=== PATIENT | female | born 1960 | race Caucasian/White ===

== ENCOUNTER 2019-07-31 10:07 | Inpatient (IN) ==
[2019-07-31] MEDS ORDERED: 0.9 % SODIUM CHLORIDE 1,000 ML IV ONE ×2 (10:23→11:21)
[2019-07-31 10:48] LABS: POC Blood Urea Nitrogen 67 mg/dl (6-20); POC CO2 19 mmol/L (22-30); POC Calcium, Ionized 0.97 mmol/L (1.16-1.32); POC Chloride 97 mmol/L (96-108); POC Creatinine 2.7 mg/dl (0.6-1.1); POC Glucose, Random 129 mg/dL (70-105); POC Sodium 128 mmol/L (133-145)
[2019-07-31 11:10] LABS: Basophils # (Auto) 0.1 K/mcL (0.0-0.3); Basophils % (Auto) 0.8 % (0.0-2.0); Eosinophils # (Auto) 0.1 K/mcL (0.0-0.7); Eosinophils % (Auto) 0.8 % (0.0-7.0); Hemoglobin 14.1 g/dL (12.0-15.0); Lymphocytes % (Auto) 11.1 % (15.5-49.0); Mean Cell Volume 85.1 fL (80.0-100.0); Mean Corpuscular HGB Conc 34.4 g/dL (31.0-36.0); Mean Platelet Volume 8.1 fL (7.4-10.4); Monocytes # (Auto) 1.2 K/mcL (0.1-0.9); Monocytes % (Auto) 13.3 % (1.0-12.0); Platelet Count 280 K/mcL (140-440); RBC 4.82 M/mcL (4.00-5.20); Red Cell Distribution Width 12.6 % (11.5-14.5); WBC 8.9 K/mcL (4.5-11.0)
[2019-07-31] MEDS ORDERED: ONDANSETRON 4 MG/2 ML VIAL IV ONE (11:20)
--- NOTE | 2019-07-31 11:26 | Emergency Department Note ---
Nausea/Vomiting/Diarrhea HPI - General Chief complaint: Nausea/Vomiting/Diarrhea Stated complaint: nausea and vomitting Time Seen by Provider: 07/31/19 10:17 Source: patient Mode of arrival: ambulatory Limitations: no limitations - History of Present Illness HPI Narrative: 59-year-old female presents with 7-day history of nausea, vomiting, and diarrhea. She also has diffuse abdominal pain. States for 5 and half days she did have significant nonstop vomiting and diarrhea. States she finally is not vomiting but still has some nausea. Has not had diarrhea for about 24 hours. States she feels really lightheaded and generally weak. She presented to [facility] today and had a blood pressure of 80/50 so they sent her to the ER for further evaluation. No dysuria or frequency. Feels like she is very dry. States she does take medications for high blood pressure and did take them this morning. No chest pain or shortness of breath. No sore throat or ear pain. No fever or chills - Related Data Home Medications Medication Instructions Recorded Confirmed Bisoprolol/Hydrochlorothiazide 1 tab PO DAILY 01/21/17 07/31/19 [Bisoprolol-Hctz 10-6.25 mg Tab] Fexofenadine HCl [Aller-Fex] 180 mg PO DAILY 01/21/17 07/31/19 Fluticasone Furoate [Flonase 9.9 ml NS DAILY 01/21/17 07/31/19 Sensimist] Leflunomide [Arava] 20 mg PO DAILY 01/21/17 07/31/19 Lisinopril [Zestril] 20 mg PO DAILY 01/21/17 07/31/19 Omeprazole 20 mg PO DAILY 01/21/17 07/31/19 Previous Rx's Medication Instructions Recorded guaifenesin 100 mg/5 mL oral liquid 200 mg PO Q4H PRN #120 ml 08/29/17 Allergies Allergy/AdvReac Type Severity Reaction Status Date / Time azithromycin [From Zithromax] Allergy Unknown Verified 08/29/17 13:02 Review of Systems All systems ED: reviewed and negative except as stated. 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 Absent: conjunctival injection ENT: Absent: mucous membranes moist (slightly dry) Chest: Present: symmetric chest wall rise Respiratory: Present: normal lung sounds bilaterally. Absent: respiratory di stress, rales/crackles, accessory muscle use Cardiovascular: Present: regular rate, normal heart sounds Abdominal: Present: soft, tenderness (difuse), normal bowel sounds. Absent: distention, guarding, rebound, rigidity, mass Neurological: Present: alert, oriented X3 Psychiatric: Present: normal affect, normal mood Skin: Present: warm, dry, intact, normal color. Absent: rash, hives, cyanosis, diaphoresis Course Course Narrative: At 1400 I did speak with the hospitalist, Dr. Penaloza who agrees to accept this patient. Vital Signs Temperature 97 F 07/31/19 10:07 Pulse Rate 71 07/31/19 10:07 Respiratory Rate 16 07/31/19 10:07 Blood Pressure 86/60 07/31/19 10:07 Pulse Oximetry (%) 96 07/31/19 10:07 Temperature 97 F 07/31/19 10:07 Pulse Rate 62 07/31/19 13:34 Respiratory Rate 17 07/31/19 13:34 Blood Pressure 128/84 07/31/19 13:34 Pulse Oximetry (%) 100 07/31/19 13:34 Nausea/Vomiting/Diarrhea - Lab Data Lab results reviewed: Yes I reviewed the patient's lab results. Result diagrams: 07/31/19 10:41 07/31/19 10:41 Lab Results 07/31/19 07/31/19 07/31/19 Range/Units 10:41 10:41 11:35 WBC 8.9 (4.5-11.0) K/mcL RBC 4.82 (4.00-5.20) M/mcL Hgb 14.1 (12.0-15.0) g/dL Hct 41.0 (36.0-48.0) % POC Hct 44.0 (36.0-48.0) % MCV 85.1 (80.0-100.0) fL MCH 29.3 (26.0-34.0) pg MCHC 34.4 (31.0-36.0) g/dL RDW 12.6 (11.5-14.5) % Plt Count 280 (140-440) K/mcL MPV 8.1 (7.4-10.4) fL Gran % 74.0 (38.0-78.0) % Lymph % (Auto) 11.1 L (15.5-49.0) % [place] % (Auto) 13.3 H (1.0-12.0) % Eos % (Auto) 0.8 (0.0-7.0) % Baso % (Auto) 0.8 (0.0-2.0) % Gran # 6.5 (1.8-8.0) K/mcL Lymph # (Auto) 1.0 L (1.5-4.8) K/mcL [place] # (Auto) 1.2 H (0.1-0.9) K/mcL Eos # (Auto) 0.1 (0.0-0.7) K/mcL Baso # (Auto) 0.1 (0.0-0.3) K/mcL VBG Lactic Acid 1.3 (0.5-2.0) mmol/L POC Sodium 128 L (133-145) mmol/L Sodium 128 L (133-145) mmol/L POC Potassium 3.0 L (3.3-5.1) mmol/L Potassium 3.1 L (3.3-5.1) mmol/L POC Chloride 97 (96-108) mmol/L Chloride 92 L (96-108) mmol/L Carbon Dioxide 17 L (22-30) mmol/L POC Total CO2 19 L (22-30) mmol/L Anion Gap 19.0 H (8-16) POC BUN 67 H (6-20) mg/dl BUN 69 H (6-20) mg/dl Creatinine 2.4 H (0.6-1.1) mg/dl POC Creatinine 2.7 H (0.6-1.1) mg/dl GFR Calculation 22 Glucose 130 H (70-105) mg/dL POC Glucose 129 H (70-105) mg/dL Calcium 9.7 (8.6-10.4) mg/dl POC WB Ioniz Calcium 0.97 L (1.16-1.32) mmol/L Total Bilirubin 0.5 (0.0-1.0) mg/dL AST 18 (0-37) U/l ALT 19 (0-40) U/l Alkaline Phosphatase 106 (39-117) U/L Total Protein 8.1 (5.9-8.4) gm/dL Albumin 4.2 (3.2-5.2) gm/dL Globulin 3.9 H (2.2-3.7) gm/dL Albumin/Globulin Ratio 1.1 (1.0-2.3) Disposition Pt seen by EDUCATIONAL CONSULTANT/PA only: Yes Clinical Impression: Dehydration, Gastroenteritis Disposition: Xfer As Outpt/Obs ([facility]) Condition: Fair Referrals: Jaime Jolly MD [Primary Care Provider] - Time of Disposition: 14:00
[2019-07-31 11:32] LABS: ALT/SGPT 19 U/l (0-40); AST/SGOT 18 U/l (0-37); Albumin 4.2 gm/dL (3.2-5.2); Albumin/Globulin Ratio 1.1 (1.0-2.3); Alkaline Phosphatase 106 U/L (39-117); Bilirubin,Total 0.5 mg/dL (0.0-1.0); Blood Urea Nitrogen 69 mg/dl (6-20); Calcium 9.7 mg/dl (8.6-10.4); Carbon Dioxide 17 mmol/L (22-30); Globulin 3.9 gm/dL (2.2-3.7); Glomerular Filtration Rate 22; Glucose 130 mg/dL (70-105)
[2019-07-31 11:34] LABS: Chloride 92 mmol/L (96-108)
[2019-07-31] MEDS ORDERED: POTASSIUM CHLORIDE 40 MEQ in DEXTROSE 5% IN WATER 500 ML IV ONE (12:09)
[2019-07-31] MEDS ORDERED: POTASSIUM CHLORIDE 20 MEQ/10 ML VIAL IV ONE (12:26)
--- NOTE | 2019-07-31 13:55 | Cat Scan Report ---
History: Abdominal pain with nausea and vomiting TECHNIQUE: The patient was imaged following oral contrast and no intravenous contrast due to elevated BUN/creatinine levels. Patient was scanned from the diaphragm to the symphysis pubis. Sagittal and coronal reformats are created. Radiation exposure was limited using dose reduction technology. FINDINGS: There are few scattered bulla in both lungs. Evaluation the abdominal organs without contrast is somewhat limited. The liver and spleen are normal in size and homogeneous. The gallbladder is partially contracted. There are several calcified stones and some sludge within the lumen of the gallbladder. The wall does not appear to be abnormally thickened and the bile ducts are nondilated. There is no apparent mass or inflammation in the pancreas. The adrenals are normal. There is a nonobstructing 1.5 mm kidney stone on the left side, in a middle third calyx. No abnormality is seen in the right kidney. There is no loss of renal parenchyma in either kidney. The aorta is normal in caliber. There are scattered plaques along the wall of the aorta and iliac arteries. The oral contrast has passed through stomach and small intestine into the rectum without obstruction. The appendix is noninflamed. There is a small lipoma at the ileocecal valve. There is no evidence of diverticulitis or inflammatory bowel disease. The uterus and ovaries have been removed. No ascites or adenopathy are present in the abdomen or pelvis. The urinary bladder appears normal. Severe disc degeneration is present at L5-S1 and there is 4 mm retrolisthesis of L5 posterior to L1. There are medium-size posterior spurs, along with a moderate size posterior bulge at that level. There is stenosis of the neural foramina, right greater than left at L5-S1. Less severe disc degeneration is present throughout the remainder of the lumbar spine as well as the lower thoracic spine. IMPRESSION: Cholelithiasis Severe degenerative disc disease at L5-S1 No acute abnormality Interpreted and Authenticated by: Denny Bender 07/31/19
--- NOTE | 2019-07-31 14:24 | Internal Med History&Physical ---
Medical - H&P: [facility] Patient information: Note initiated : 07/31/19 at 2:20 pm Service Date, if different from initiated Date: [] Patient: Bernie Muro a 59 y/o F admitted on for nausea and vomiting. Chief Complaint: [] History of present illness: Ms. Muro is a 59 year old F Who [facility] for [facility] weakness. Patient had nausea vomiting diarrhea that started about a week ago. She had about 3 days worth of severe nausea vomiting diarrhea. She has not had any emesis for the past for 5 days and no diarrhea for the past couple days. Still little nauseous with some generalized abdominal pain. She is also had some heart burn over the weekend after emesis At [facility] she had a blood pressure of 80/50. In the ER she was found to have acute kidney injury with creatinine 2.4 and BUN 69. Hyponatremia and hypo-kalemia. Lactate was okay. The abdomen pelvis was unremarkable except for cholelithiasis, no features of cholecystitis. Blood pressure is improved with IV fluid. Still has not been able to divide urine sample. Review of Systems: Pertinent positives as above. And occasional headaches and chills. fever/chest pain/cough/dyspnea. Remaining 10 point review of system reviewed negative Medical - H&P: [facility] Medical history: Medical History (Last Reviewed 07/31/19 @ 10:15 by Mack Riggs PA-C) Tobacco abuse Hypertension Rheumatoid arthritis GERD Past surgical history: Hysterectomy Right hand surgery Tonsillectomy Family history: Mother father with both healthy Social history: Patient smokes half pack cigarettes per day Drinks alcohol occasionally Lives at home with her Medical - H&P: Meds Home Medications Medication Instructions Recorded Confirmed Type Bisoprolol/Hydrochlorothiazide 1 tab PO DAILY 01/21/17 07/31/19 History [Bisoprolol-Hctz 10-6.25 mg Tab] Fexofenadine HCl [Aller-Fex] 180 mg PO DAILY 01/21/17 07/31/19 History Fluticasone Furoate [Flonase 9.9 ml NS DAILY 01/21/17 07/31/19 History Sensimist] Leflunomide [Arava] 20 mg PO DAILY 01/21/17 07/31/19 History Lisinopril [Zestril] 20 mg PO DAILY 01/21/17 07/31/19 History Omeprazole 20 mg PO DAILY 01/21/17 07/31/19 History guaifenesin 100 mg/5 mL oral liquid 200 mg PO Q4H PRN #120 ml 08/29/17 07/31/19 Rx Allergies Allergy/AdvReac Type Severity Reaction Status Date / Time azithromycin [From Zithromax] Allergy Unknown Verified 08/29/17 13:02 Medical - H&P: Exam - Constitutional Vitals: Temp Pulse Resp BP Pulse Ox 97 F 62 17 128/84 100 07/31/19 10:07 07/31/19 13:34 07/31/19 13:34 07/31/19 13:34 07/31/19 13:34 Exam: General: Alert, Awake, No acute Distress Eyes/N/T: EOMI, PEERL, DMM Head/Neck: neck supple, normocephalic atraumatic CV: RRR, No murmurs, normal s1/s2 Pulm: Clear b/l, no wheezing/rhonchi/rales Abd: soft, +BS x4 Ext: no clubbing/cyanosis/edema Neuro: Alert, no focal deficits, moves all extremities, CN 2-12 grossly intact, symmetrical strength b/l upper/lower, sensations intact b/l upper/lower Skin: warm/dry Medical - H&P: Reslt - Labs CBC & Chem 7: 07/31/19 10:41 07/31/19 10:41 Labs: Short CBC 07/31/19 Range/Units 10:41 WBC 8.9 (4.5-11.0) K/mcL Hgb 14.1 (12.0-15.0) g/dL Hct 41.0 (36.0-48.0) % Plt Count 280 (140-440) K/mcL BMP 07/31/19 10:41 Sodium 128 L Potassium 3.1 L Chloride 92 L Carbon Dioxide 17 L BUN 69 H Creatinine 2.4 H Glucose 130 H Calcium 9.7 Liver Function 07/31/19 Range/Units 10:41 Total Bilirubin 0.5 (0.0-1.0) mg/dL AST 18 (0-37) U/l ALT 19 (0-40) U/l Alkaline Phosphatase 106 (39-117) U/L Albumin 4.2 (3.2-5.2) gm/dL - Impressions CT and pelvis unremarkable for acute pathology, cholelithiasis noted Medical - H&P: A/P - Narrative A/P Narrative: A: *SIGRID: 2/2 prerenal *Hypotension: 2/2 volume depletion + BP meds -responded to IVF's *HypoNat/Anand: *Met Acidosis: 2/2 above *N/V/D: 2/2 gastroenteritis, improving *HTN: hypotensive on admit *RA: *GERD: * P: -IVF -f/u chemistry -monitor UOP -hold home BB/HCTZ/ACEI -monitor BP -ppx: lovenox/home ppi full code
[2019-07-31] MEDS ORDERED: ACETAMINOPHEN 325 MG TABLET PO PRN (16:49)
[2019-07-31] MEDS ORDERED: ONDANSETRON 4 MG/2 ML VIAL IV PRN (16:49)
[2019-07-31] MEDS ORDERED: PROMETHAZINE 25 MG/ML VIAL IV PRN (16:49)
[2019-07-31] MEDS: 0.9 % SODIUM CHLORIDE 1,000 ML IV SCH (17:33)
[2019-07-31 17:35] LABS: Appearance,Urine CLEAR; Bacteria,Urine 0 /hpf (0); Bilirubin,Urine NEG (NEG); Color,Urine STRAW; Culture Indicated,Urine NO; Glucose,Urine (UA) NEGATIVE (NEG); Ketones,Urine NEG (NEG); Leukocyte Esterase,Urine NEG /uL (NEG); Nitrate,Urine NEG (NEG); Protein,Urine NEG (NEG); Specific Gravity,Urine 1.006 (1.000-1.035); Urine Blood 0.2 mg/dL (<0.03); Urine RBC 0 /hpf (0-1); Urine Squamous Epithelial Cell 5 /hpf (0-4); Urine WBC 0 /hpf (0-4); Urobilinogen,Urine NEG (NEG)
[2019-07-31 18:24] LABS: ALT/SGPT 16 U/l (0-40); AST/SGOT 17 U/l (0-37); Albumin 3.7 gm/dL (3.2-5.2); Alkaline Phosphatase 96 U/L (39-117); Bilirubin,Direct < 0.2 mg/dL (0.0-0.3); Bilirubin,Total 0.4 mg/dL (0.0-1.0); Blood Urea Nitrogen 59 mg/dl (6-20); Calcium 8.6 mg/dl (8.6-10.4); Carbon Dioxide 17 mmol/L (22-30); Chloride 96 mmol/L (96-108); Globulin 3.6 gm/dL (2.2-3.7); Glucose 98 mg/dL (70-105); Lactate Dehydrogenase 185 U/L (94-250); Phosphorous 4.1 mg/dL (2.7-4.5); Triglycerides 247 mg/dl (<150); Uric Acid 9.2 mg/dL (2.5-8.0)
[2019-07-31 18:25] LABS: Glomerular Filtration Rate 29
[2019-07-31] MEDS: FAMOTIDINE 20 MG TABLET PO SCH (20:17)
[2019-07-31] MEDS: 0.9 % SODIUM CHLORIDE 10 ML SYRINGE IV SCH (20:17)
[2019-08-01] MEDS: 0.9 % SODIUM CHLORIDE 1,000 ML IV SCH (05:46)
[2019-08-01] MEDS: 0.9 % SODIUM CHLORIDE 10 ML SYRINGE IV SCH ×3 (05:46→20:05)
[2019-08-01 06:39] LABS: ALT/SGPT 15 U/l (0-40); AST/SGOT 18 U/l (0-37); Albumin 3.2 gm/dL (3.2-5.2); Alkaline Phosphatase 94 U/L (39-117); Bilirubin,Direct < 0.2 mg/dL (0.0-0.3); Bilirubin,Total 0.4 mg/dL (0.0-1.0); Blood Urea Nitrogen 49 mg/dl (6-20); Calcium 8.4 mg/dl (8.6-10.4); Carbon Dioxide 14 mmol/L (22-30); Chloride 101 mmol/L (96-108); Globulin 3.2 gm/dL (2.2-3.7); Glucose 90 mg/dL (70-105); Lactate Dehydrogenase 182 U/L (94-250); Phosphorous 3.2 mg/dL (2.7-4.5); Triglycerides 207 mg/dl (<150); Uric Acid 7.8 mg/dL (2.5-8.0)
[2019-08-01 06:54] LABS: Glomerular Filtration Rate 38
--- NOTE | 2019-08-01 07:54 | Internal Med Progress Note ---
Medical - PN: Subj Patient information: Note initiated : 08/01/19 at 7:50 am Service Date, if different from initiated Date: [] Patient: Bernie Muro a 59 y/o F admitted on 07/31/19 for nausea and vomiting. Chief Complaint: [] Interval history: Ms. Muro is a 59 year old F Who presents from [facility] for hypotension weakness. Patient had nausea vomiting diarrhea that started about a week ago. She had about 3 days worth of severe nausea vomiting diarrhea. She has not had any emesis for the past for 5 days and no diarrhea for the past couple days. Still little nauseous with some generalized abdominal pain. She is also had some heart burn over the weekend after emesis At [facility] she had a blood pressure of 80/50. In the ER she was found to have acute kidney injury with creatinine 2.4 and BUN 69. Hyponatremia and hypo-kalemia. Lactate was okay. The abdomen pelvis was unremarkable except for cholelithiasis, no features of cholecystitis. Blood pressure is improved with IV fluid. Still has not been able to divide urine sample. 08/01 Has a bit of a headache sore neck but otherwise feeling better. Poor sleep overnight. No other events or new complaints. Review of Systems: denies fever/chills/nausea/vomiting/chest or abdominal pain/cough/dyspnea/diarrhea. Otherwise see above. - Constitutional Vitals: Vital Signs Temp Pulse Resp BP Pulse Ox 97.6 F 78 20 122/79 97 08/01/19 07:22 08/01/19 03:30 08/01/19 07:22 08/01/19 07:22 08/01/19 07:22 Period Temp Pulse Resp BP Sys/Adkins Pulse Ox Last 24 Hr 97 F-98.8 F 58-78 12-20 86-146/60-88 96-100 Intake and Output 07/31/19 08/01/19 08/01/19 21:59 05:59 13:59 Intake Total 2549 2577 Output Total 530 2200 Balance 2019 377 Weight 85.457 kg Intake & Output: Intake & Output 07/31/19 08/01/19 08/01/19 21:59 05:59 13:59 Intake Total 2549 2577 Output Total 530 2200 Balance 2019 377 Weight 85.457 kg Intake: IV 1509 977 Sodium Chloride 0.9% 1,000 ml @ 1000 977 80 mls/hr IV .[id number] WALKER Rx#: [id number] Potassium Chloride 40 Meq In 509 Dextrose 5% in Water 500 ml @ 130 mls/hr IV ONCE ONE Rx#: [id number] Oral 1040 1600 Output: Void Amount 530 2200 Other: Meal Dinner Percent of Meal Consumed 75% Urine Appearance Clear Clear Urine Color Pale Pale Stool Size Small Stool Color Brown Stool Consistency Liquid # Voids 1 # Bowel Movements 1 Exam: General: Alert, Awake, No acute Distress Eyes/N/T: EOMI, Head/Neck: neck supple, CV: RRR, No murmurs, Pulm: Clear b/l, no wheezing/rhonchi/rales Abd: soft, +BS x4 Ext: no clubbing/cyanosis/edema Neuro: Alert, no focal deficits, moves all extremities, Skin: warm/dry Medical - PN: Obj Da - Labs CBC & Chem 7: 07/31/19 10:41 08/01/19 05:13 Labs: Abnormal Lab Results 08/01/19 07/31/19 07/31/19 05:13 16:56 16:49 Lymph % (Auto) [place] % (Auto) Lymph # (Auto) [place] # (Auto) POC Sodium Sodium 129 L 129 L POC Potassium Potassium Chloride Carbon Dioxide 14 L 17 L POC Total CO2 Anion Gap POC BUN BUN 49 H 59 H Creatinine 1.5 H 1.9 H POC Creatinine Glucose POC Glucose Uric Acid 9.2 H Calcium 8.4 L POC WB Ioniz Calcium Globulin Triglycerides 207 H 247 H Urine Occult Blood 0.2 A Ur Squamous Epith Cells 5 H 07/31/19 07/31/19 10:41 10:41 Lymph % (Auto) 11.1 L [place] % (Auto) 13.3 H Lymph # (Auto) 1.0 L [place] # (Auto) 1.2 H POC Sodium 128 L Sodium 128 L POC Potassium 3.0 L Potassium 3.1 L Chloride 92 L Carbon Dioxide 17 L POC Total CO2 19 L Anion Gap 19.0 H POC BUN 67 H BUN 69 H Creatinine 2.4 H POC Creatinine 2.7 H Glucose 130 H POC Glucose 129 H Uric Acid Calcium POC WB Ioniz Calcium 0.97 L Globulin 3.9 H Triglycerides Urine Occult Blood Ur Squamous Epith Cells Meds: Medications Acetaminophen (Tylenol) 650 mg PO Q6HP PRN; Protocol PRN Reason: Per Pain Protocol/Fever > 101 Last Admin: 08/01/19 03:26 Dose: 650 mg Documented by: Enoxaparin Sodium (Lovenox) 30 mg SQ DAILY [facility] Famotidine (Pepcid) 20 mg PO HS [facility] Last Admin: 07/31/19 20:17 Dose: 20 mg Documented by: Sodium Chloride (Sodium Chloride 0.9%) 1,000 mls @ 80 mls/hr IV .[id number] [facility] Stop: 08/01/19 17:48 Last Admin: 08/01/19 05:46 Dose: 80 mls/hr Documented by: Leflunomide (Arava) 20 mg PO DAILY [facility] Ondansetron HCl (Zofran) 4 mg IV Q6HP PRN PRN Reason: Nausea And Vomiting Promethazine HCl (Phenergan) 12.5 mg IV Q6HP PRN PRN Reason: Nausea And Vomiting Sodium Chloride (Saline Flush) 10 ml IV Q8 [facility] Last Admin: 08/01/19 05:46 Dose: Not Given Documented by: Medical - PN: A/P - Time Spent With Patient Total time spent is greater than 50% in coordination of care (as documented) at patient's floor/unit and/or counseling patient: - Narrative A/P Narrative: A: *SIGRID: 2/2 prerenal. Improved -1.5<2.4 *Hypotension: 2/2 volume depletion + BP meds -responded to IVF's *HypoNat/Anand: improving *Met Acidosis: 2/2 above *N/V/D: 2/2 gastroenteritis, improving *HTN: hypotensive on admit *RA: *GERD: * P: -IVF -monitor UOP -restart home BB, hold HCTZ/ACEI. will not cont hctz upon d/c -ppx: lovenox/home ppi full code Medical - PN: Qual - VTE Deep Vein Thrombosis/Pulmonary Embolism Present on Admission: No
[2019-08-01] MEDS: BISOPROLOL 5 MG TABLET PO SCH (08:05)
[2019-08-01] MEDS: ENOXAPARIN 30 MG/0.3 ML SYRINGE SQ SCH (08:05)
[2019-08-01] MEDS: LEFLUNOMIDE 20 MG TABLET PO SCH (09:45)
--- NOTE | 2019-08-01 11:35 | Discharge Summary ---
Medical - DS: Prov Patient information: Note initiated : 08/01/19 at 11:31 am Service Date, if different from initiated Date: [] Patient: Bernie Muro 59 y/o F admitted on 07/31/19 for nausea and vomiting. Chief Complaint: [] Date of admission: 07/31/19 16:34 Discharge date: 08/02/19 Primary care physician: Jaime Jolly Consults: 07/31/19 Consult to Physician [CONS] Stat Comment: Consulting Provider: Brian Penaloza Reason For Exam: Physician to Consult Medical - DS: Meds - Discharge Medications Prescriptions: Losartan [Cozaar] 50 mg PO DAILY #1 tablet Bisoprolol [Zebeta] 10 mg PO DAILY #30 tab Active and Home Medications: Home Medications Bisoprolol/Hydrochlorothiazide [Bisoprolol-Hctz 10-6.25 mg Tab] 1 tab PO DAILY 01/21/17 [History Confirmed 07/31/19 Last Taken Unknown] Fexofenadine HCl [Aller-Fex] 180 mg PO DAILY 01/21/17 [History Confirmed 07/31/19 Last Taken Unknown] Fluticasone Furoate [Flonase Sensimist] 9.9 ml NS DAILY 01/21/17 [History Confirmed 07/31/19 Last Taken Unknown] Leflunomide [Arava] 20 mg PO DAILY 01/21/17 [History Confirmed 07/31/19 Last Taken Unknown] Omeprazole 20 mg PO DAILY 01/21/17 [History Confirmed 07/31/19 Last Taken Unknown] Losartan [Cozaar] 100 mg PO QDAY 07/31/19 [History Confirmed 07/31/19 Last Taken Unknown] Home Medications Fexofenadine HCl [Aller-Fex] 180 mg PO DAILY 01/21/17 [History Confirmed 07/31/19 Last Taken Unknown] Fluticasone Furoate [Flonase Sensimist] 9.9 ml NS DAILY 01/21/17 [History Confirmed 07/31/19 Last Taken Unknown] Leflunomide [Arava] 20 mg PO DAILY 01/21/17 [History Confirmed 07/31/19 Last Taken Unknown] Omeprazole 20 mg PO DAILY 01/21/17 [History Confirmed 07/31/19 Last Taken Unknown] Bisoprolol [Zebeta] 10 mg PO DAILY #30 tablet 08/01/19 [Rx Last Taken Unknown] Losartan [Cozaar] 25 mg PO QDAY #30 tablet 08/01/19 [Rx Last Taken Unknown] Medical - DS: Hosp Hospital Course: Ms. Muro is a 59 year old F Who presents from [facility] for hypotension weakness. Patient had nausea vomiting diarrhea that started about a week ago. She had about 3 days worth of severe nausea vomiting diarrhea. She has not had any emesis for the past for 5 days and no diarrhea for the past couple days. Still little nauseous with some generalized abdominal pain. She is also had some heart burn over the weekend after emesis At [facility] she had a blood pressure of 80/50. In the ER she was found to have acute kidney injury with creatinine 2.4 and BUN 69. Hyponatremia and hypo-kalemia. Lactate was okay. The abdomen pelvis was unremarkable except for cholelithiasis, no features of cholecystitis. Blood pressure is improved with IV fluid. Still has not been able to divide urine sample. 08/01 Has a bit of a headache sore neck but otherwise feeling better. Poor sleep overnight. No other events or new complaints. 08/02 Feeling good. Sodium improved and renal function greatly improved. Blood pressure stable. stAble for discharge. instructed her to take her blood pressure daily and bring the log to primary care provider. We stopped the hydrochlorothiazide and reduced the losartan from 100 to 50mg daily. Discharge diagnosis: Acute kidney injury hypotension hyponatremia hypokalemia Secondary discharge diagnosis: Metabolic acidosisenteritis hypertension RA GERD - Time Spent with Patient Total time spent providing and/or coordinating discharge services: Greater than 30 minutes Medical - DS: Exam - Constitutional Vitals: Vital Signs Temp Pulse Pulse Resp BP BP Pulse Ox 08/01/19 07:22 97.6 F 20 122/79 97 08/01/19 03:30 98.3 F 78 12 146/88 98 07/31/19 22:55 98.8 F 72 20 123/71 97 07/31/19 19:40 97.6 F 69 18 110/67 98 07/31/19 17:31 97.7 F 58 L 18 114/73 99 07/31/19 16:48 97 F 59 L 14 135/86 100 07/31/19 15:43 59 L 14 135/86 100 07/31/19 15:32 69 15 135/86 100 07/31/19 13:34 62 17 128/84 100 07/31/19 13:31 63 13 129/84 99 07/31/19 13:17 63 15 133/81 100 07/31/19 12:56 14 118/77 100 07/31/19 12:08 114/68 Intake and Output 07/31/19 08/01/19 08/01/19 21:59 05:59 13:59 Intake Total 2549 2577 240 Output Total 530 2200 1000 Balance 2018 377 -760 Intake: IV 1509 977 Sodium Chloride 0.9% 1,000 ml @ 1000 977 80 mls/hr IV .[id number] WALKER Rx#: [id number] Potassium Chloride 40 Meq In 509 Dextrose 5% in Water 500 ml @ 130 mls/hr IV ONCE ONE Rx#: [id number] Oral 1040 1600 240 Output: Void Amount 530 2200 1000 Other: Meal Dinner Breakfast Percent of Meal Consumed 75% 50% Feeding Ability Independent Urine Appearance Clear Clear Clear Urine Color Pale Pale Pale Stool Size Small Stool Color Brown Stool Consistency Liquid # Voids 1 # Bowel Movements 1 Weight 85.457 kg Medical - DS: Data Labs on day of discharge: Labs from last 24 hours 08/01/19 07/31/19 07/31/19 05:13 16:56 16:49 VBG Lactic Acid Sodium 129 L 129 L Potassium 3.3 3.7 Chloride 101 96 Carbon Dioxide 14 L 17 L Anion Gap 14.0 16.0 BUN 49 H 59 H Creatinine 1.5 H 1.9 H GFR Calculation 38 29 Glucose 90 98 Uric Acid 7.8 9.2 H Calcium 8.4 L 8.6 Phosphorus 3.2 4.1 Magnesium 1.8 2.0 Total Bilirubin 0.4 0.4 Direct Bilirubin < 0.2 < 0.2 GGT 33 33 AST 18 17 ALT 15 16 Alkaline Phosphatase 94 96 Lactate Dehydrogenase 182 185 Total Protein 6.4 7.3 Albumin 3.2 3.7 Globulin 3.2 3.6 Albumin/Globulin Ratio 1.0 1.0 Triglycerides 207 H 247 H Urine Color Straw Urine Appearance Clear Urine pH 6.0 Ur Specific [place] 1.006 Urine Protein Neg Urine Glucose (UA) Negative Urine Ketones Neg Urine Occult Blood 0.2 A Urine Nitrate Neg Urine Bilirubin Neg Urine Urobilinogen Neg Ur Leukocyte Esterase Neg Urine RBC 0 Urine WBC 0 Ur Squamous Epith Cells 5 H Urine Bacteria 0 Ur Culture Indicated? No 07/31/19 07/31/19 11:35 10:41 VBG Lactic Acid 1.3 Sodium 128 L Potassium 3.1 L Chloride 92 L Carbon Dioxide 17 L Anion Gap 19.0 H BUN 69 H Creatinine 2.4 H GFR Calculation 22 Glucose 130 H Uric Acid Calcium 9.7 Phosphorus Magnesium Total Bilirubin 0.5 Direct Bilirubin GGT AST 18 ALT 19 Alkaline Phosphatase 106 Lactate Dehydrogenase Total Protein 8.1 Albumin 4.2 Globulin 3.9 H Albumin/Globulin Ratio 1.1 Triglycerides Urine Color Urine Appearance Urine pH Ur Specific [place] Urine Protein Urine Glucose (UA) Urine Ketones Urine Occult Blood Urine Nitrate Urine Bilirubin Urine Urobilinogen Ur Leukocyte Esterase Urine RBC Urine WBC Ur Squamous Epith Cells Urine Bacteria Ur Culture Indicated? Medical - DS: A/P - Patient/Caregiver Discharge Instructions Activity: increase activity as tolerated Diet: Regular Diet Prescriptions: Losartan [Cozaar] 25 mg PO QDAY #30 tab Bisoprolol [Zebeta] 10 mg PO DAILY #30 tab - Follow up Plan Follow up with: Jaime Jolly MD [Primary Care Provider] - Disposition: Home, Self-Care Prognosis: Fair Rehab Potential: Fair Overall status at discharge: patient is back to baseline Medical - DS: Qual - VTE Deep Vein Thrombosis/Pulmonary Embolism Present on Admission: No
[2019-08-01] MEDS: FAMOTIDINE 20 MG TABLET PO SCH (20:04)
[2019-08-01] MEDS ORDERED: MELATONIN 3 MG TABLET PO SCH (21:00)
[2019-08-02] MEDS: 0.9 % SODIUM CHLORIDE 10 ML SYRINGE IV SCH (04:50)
[2019-08-02 06:39] LABS: Blood Urea Nitrogen 25 mg/dl (6-20); Calcium 8.9 mg/dl (8.6-10.4); Carbon Dioxide 20 mmol/L (22-30); Chloride 100 mmol/L (96-108); Glomerular Filtration Rate 62; Glucose 94 mg/dL (70-105)
[2019-08-02] MEDS: LEFLUNOMIDE 20 MG TABLET PO SCH (08:12)
[2019-08-02] MEDS: ENOXAPARIN 30 MG/0.3 ML SYRINGE SQ SCH (08:12)
[2019-08-02] MEDS: BISOPROLOL 5 MG TABLET PO SCH (08:12)
[2019-08-02] MEDS ORDERED: POTASSIUM CHLORIDE 20 MEQ TABLET PO ONE (09:29)
== END 2019-08-02 10:18 | disposition home or self-care (01) | DRG 683 ==
LOC: ED 10:07 → MEDSUR 16:34
PROVIDERS: ADMIT Internal Medicine; ATTEND Internal Medicine